=== PATIENT | female | born 1965 | race Caucasian/White ===

== ENCOUNTER → 2016-07-31 | Outpatient (CLI) | payer BC ==
[2016-07-31 12:13] LABS: HEMOGLOBIN 12.3 gm/dl (12.3-15.3); RED BLOOD COUNT 4.6 M/UL (4.00-5.10); WHITE BLOOD COUNT 6.5 K/UL (4.5-11.0)
== END ==
LOC: LAB 11:08
PROVIDERS: Physician Assistant
DX: E78.5 Hyperlipidemia, unspecified (principal); I10 Essential (primary) hypertension; E11.9 Type 2 diabetes mellitus without complications
CPT/HCPCS: 36415; 80053; 80061; 82043; 82570; 83036; 85025

== ENCOUNTER → 2016-09-24 | Outpatient (CLI) | payer BC ==
[~2016-09-24] VITALS: Ht 172.7 cm; Wt 117.9 kg
== END ==
LOC: OPSV 09-20 11:00
PROVIDERS: Nurse Practitioner
DX: M84.376A Stress fracture, unspecified foot, initial encounter for fracture (principal); M14.671 Charcot's joint, right ankle and foot; Z79.899 Other long term (current) drug therapy
CPT/HCPCS: 36415; 80053; 96365; 96366; J2430; J7030

== ENCOUNTER → 2016-11-06 | Outpatient (CLI) | payer BC ==
[2016-11-06 14:25] LABS: HEMOGLOBIN 13.1 gm/dl (12.3-15.3); RED BLOOD COUNT 4.87 M/UL (4.00-5.10); WHITE BLOOD COUNT 6.9 K/UL (4.5-11.0)
== END ==
LOC: LAB 13:26
PROVIDERS: Internal Medicine Nephrology
DX: I10 Essential (primary) hypertension (principal); E78.5 Hyperlipidemia, unspecified; E11.9 Type 2 diabetes mellitus without complications
CPT/HCPCS: 36415; 80053; 80061; 82043; 82570; 84443; 85025

== ENCOUNTER → 2020-12-04 | Outpatient (CLI) | payer BC ==
[~2020-12-04] MED LIST: ATORVASTATIN CA20 MG PO; CYCLOBENZAPRINE10 MG PO; DEXAMETHASONE 44 MG PO; FUROSEMIDE20 MG PO; GABAPENTIN600 MG PO; LISINOPRIL20 MG PO; METOPROLOL SUCC50 MG PO; MONTELUKAST SOD10 MG PO; OMEPRAZOLE20 MG PO; VICTOZA 3-0.6 MG/0.1 SQ; WOMEN'S DAILY1 EACH PO
== END ==
LOC: KOH-I 12:43
DX: R51.9 Headache, unspecified (principal)
CPT/HCPCS: 70551

== ENCOUNTER → 2020-12-05 | Outpatient (CLI) | payer BC ==
[~2020-12-05] VITALS: Ht 175.3 cm; Wt 127.0 kg
== END ==
LOC: OPSV 07:51
DX: M14.671 Charcot's joint, right ankle and foot (principal); M84.374G Stress fracture, right foot, subsequent encounter for fracture with delayed healing
CPT/HCPCS: 96365; 96366; J2430; J7030

== ENCOUNTER → 2020-12-25 | Outpatient (CLI) | payer BC ==
[~2020-12-25] VITALS: Ht 175.3 cm; Wt 127.0 kg
== END ==
LOC: OPSV 08:05
DX: M14.671 Charcot's joint, right ankle and foot (principal); M84.374G Stress fracture, right foot, subsequent encounter for fracture with delayed healing
CPT/HCPCS: 96361; 96365; J2430; J7030

== ENCOUNTER → 2021-09-12 | Outpatient (CLI) | payer BC | LOC: US 10:00 | DX: N17.9 Acute kidney failure, unspecified (principal) | CPT/HCPCS: 89050 ==

== ENCOUNTER → 2021-10-08 | Outpatient (CLI) | payer BC | LOC: EXRD 09-27 08:00 | DX: I12.9 Hypertensive chronic kidney disease with stage 1 through stage 4 chronic kidney disease, or unspecified chronic kidney disease (principal); N18.9 Chronic kidney disease, unspecified | CPT/HCPCS: 93975 ==